=== PATIENT | male | born 1945 | race Caucasian/White ===

== ENCOUNTER 2022-06-23 11:14 | Emergency (ER) | payer MEDICARE, OTHER ==
[~2022-06-23] VITALS: Ht 172.7 cm; Wt 102.3 kg
[2022-06-23] MEDS ORDERED: RASA0.5T PO (11:44)
[2022-06-23] MEDS ORDERED: CARB-113 PO (11:44)
[2022-06-23] MEDS ORDERED: ELIQ5TAB PO (11:44)
[2022-06-23] MEDS ORDERED: MYRB50TA PO (11:44)
[2022-06-23] MEDS ORDERED: NOXI1TAB PO (11:44)
[2022-06-23] MEDS ORDERED: LIPI20TA PO (11:44)
[2022-06-23] MEDS ORDERED: PRAM1TAB75 PO (11:44)
[2022-06-23] MEDS ORDERED: OMEP10CASR PO (11:44)
[2022-06-23] MEDS ORDERED: ALBUTEROL SULFATE 2.5MG/0.5ML INH NEB SOLN NEB ONE (12:35)
[2022-06-23 12:46] LABS: BASO % 0.7 % (0.0-1.0); EOS # 0.1 10^3/uL (0.0-0.5); EOS % 2.3 % (0.0-3.0); HEMATOCRIT 50.7 % (42.0-52.0); HEMOGLOBIN 17.1 g/dl (13.5-17.5); LYMPH # 0.9 10^3/uL (1.5-5.0); LYMPH % 15.8 % (24.0-44.0); MEAN CORPUSCULAR HEMOGLOBIN 30.8 pg (27.0-33.0); MEAN CORPUSCULAR HGB CONC 33.7 g/dl (32.0-36.5); MEAN CORPUSCULAR VOLUME 91.2 fl (80.0-96.0); MONO # 0.5 10^3/uL (0.0-0.8); MONO % 9.5 % (2.0-8.0); NEUTROPHILS # 4.1 10^3/uL (1.5-8.5); PLATELET COUNT, AUTOMATED 179 10^3/uL (150-450); RED BLOOD COUNT 5.56 10^6/uL (4.30-6.10); WHITE BLOOD COUNT 5.7 10^3/uL (4.0-10.0)
[2022-06-23 13:12] LABS: INR 1.11; PROTHROMBIN TIME 14.5 SECONDS (12.5-14.5)
[2022-06-23 13:13] LABS: PARTIAL THROMBOPLASTIN TIME 33.6 SECONDS (24.8-34.2)
[2022-06-23 13:18] LABS: ALBUMIN 4.4 G/DL (3.2-5.2); ALKALINE PHOSPHATASE 44 U/L (46-116); ALT/SGPT < 9 U/L (7.0-40); AST/SGOT 61 U/L (<34); BILIRUBIN,DIRECT 0.2 MG/DL (<0.4); BILIRUBIN,TOTAL 0.8 MG/DL (0.3-1.2); BLOOD UREA NITROGEN 15 MG/DL (9-23); CALCIUM LEVEL 9.5 MG/DL (8.3-10.6); CARBON DIOXIDE LEVEL 28 MMOL/L (20-31); CHLORIDE LEVEL 102 MMOL/L (98-107); CREATININE FOR GFR 0.89 MG/DL (0.70-1.30); GLOMERULAR FILTRATION RATE > 60.0 (>42); GLUCOSE, FASTING 110 MG/DL (74-106); LIPASE 30 U/L (12-53); SODIUM LEVEL 137 MMOL/L (136-145); TOTAL PROTEIN 7.7 G/DL (5.7-8.2)
[2022-06-23] MEDS ORDERED: VENTAER INH (14:40)
[2022-06-23 14:50] VITALS: BP 132/72
== END 2022-06-23 15:02 | disposition home or self-care (01) ==
LOC: M ED 11:14
DX: J20.9 Acute bronchitis, unspecified (principal); R31.9 Hematuria, unspecified; I48.0 Paroxysmal atrial fibrillation; G20 Parkinson's disease; E11.9 Type 2 diabetes mellitus without complications; F43.10 Post-traumatic stress disorder, unspecified; Z86.79 Personal history of other diseases of the circulatory system; Z88.0 Allergy status to penicillin; Z88.1 Allergy status to other antibiotic agents; Z88.2 Allergy status to sulfonamides; Z79.52 Long term (current) use of systemic steroids; Z79.01 Long term (current) use of anticoagulants; Z79.02 Long term (current) use of antithrombotics/antiplatelets; Z79.899 Other long term (current) drug therapy

== ENCOUNTER → 2024-02-28 | Outpatient (CLI) | payer MEDICARE, OTHER ==
[~2024-02-28] MED LIST: CARB-113 PO; ELIQ5TAB PO; LIPI20TA PO; MYRB50TA PO; NOXI1TAB PO; OMEP10CASR PO; PRAM2.252 PO; RASA0.5T PO; VENTAER INH
== END ==
LOC: M RAD 06:23
PROVIDERS: ATTEND Internal Medicine
DX: K46.9 Unspecified abdominal hernia without obstruction or gangrene (principal)

== ENCOUNTER → 2024-02-28 | Outpatient (CLI) | payer MEDICARE, OTHER ==
[~2024-02-28] MED LIST changes: +ISOVUE-370 76% 100ML VIAL As Ordered ONE
== END ==
LOC: M RAD 06:26
PROVIDERS: ATTEND Internal Medicine
DX: M54.16 Radiculopathy, lumbar region (principal); M51.25 Other intervertebral disc displacement, thoracolumbar region; M25.78 Osteophyte, vertebrae; N28.1 Cyst of kidney, acquired
CPT/HCPCS: 72131; 74178; Q9967

== ENCOUNTER → 2024-02-28 | Outpatient (CLI) | payer MEDICARE, OTHER ==
[~2024-02-28] MED LIST changes: -ISOVUE-370 76% 100ML VIAL As Ordered ONE
== END ==
LOC: M RAD 06:24
PROVIDERS: ATTEND Nurse Practitioner Family
DX: N44.2 Benign cyst of testis (principal); K46.9 Unspecified abdominal hernia without obstruction or gangrene; N50.3 Cyst of epididymis; N44.1 Cyst of tunica albuginea testis; N50.89 Other specified disorders of the male genital organs

== ENCOUNTER → 2025-01-28 | Outpatient (CLI) | payer OTHER | LOC: M SOG 07:25 | PROVIDERS: ATTEND Orthopaedic Surgery | DX: Z53.9 Procedure and treatment not carried out, unspecified reason (principal) ==

== ENCOUNTER → 2025-01-28 | Outpatient (CLI) | payer OTHER ==
[2025-01-28 16:40] LABS: BASO # 0.0 10^3/uL (0.0-0.2); BASO % 0.4 % (0.0-1.0); EOS # 0.2 10^3/uL (0.0-0.5); EOS % 2.7 % (0.0-3.0); LYMPH # 1.6 10^3/uL (1.5-5.0); LYMPH % 19.7 % (24.0-44.0); MONO # 0.6 10^3/uL (0.0-0.8); MONO % 7.4 % (2.0-8.0); NEUTROPHILS # 5.5 10^3/uL (1.5-8.5); NEUTROPHILS % 69.4 % (36.0-66.0); PLATELET COUNT, AUTOMATED 204 10^3/uL (150-450)
[2025-01-28 16:49] LABS: ERYTHROCYTE SEDIMENTATION RATE 27 mm/hr (0-20)
[2025-01-28 16:52] LABS: INR 1.11
[2025-01-28 17:15] LABS: C REACTIVE PROTEIN QUANTITATIV < 0.50 MG/DL (<1.0)
[2025-01-28 17:16] LABS: ALT/SGPT < 9 U/L (7.0-40); AST/SGOT 16 U/L (<34); CALCIUM LEVEL 9.2 MG/DL (8.3-10.6); CARBON DIOXIDE LEVEL 30 MMOL/L (20-31); CHLORIDE LEVEL 104 MMOL/L (98-107); CREATININE FOR GFR 0.82 MG/DL (0.70-1.30); GLOMERULAR FILTRATION RATE 89.9 (>42); POTASSIUM SERUM 4.3 MMOL/L (3.5-5.1); SODIUM LEVEL 142 MMOL/L (136-145)
[2025-01-28 17:18] LABS: TOTAL 25(OH) VITAMIN D 32.4 NG/ML (20.0-100.0)
[2025-01-28 18:05] LABS: ESTIMATED AVERAGE GLUCOSE 128.0 MG/DL (60-110)
== END ==
LOC: M LAB 16:16
PROVIDERS: ATTEND Orthopaedic Surgery
DX: M16.11 Unilateral primary osteoarthritis, right hip (principal); Z79.01 Long term (current) use of anticoagulants; Z79.899 Other long term (current) drug therapy

== ENCOUNTER → 2025-02-11 | Outpatient (REF) | payer OTHER | LOC: M LAB REF 16:41 | PROVIDERS: ATTEND Orthopaedic Surgery | DX: Z01.818 Encounter for other preprocedural examination (principal); M16.11 Unilateral primary osteoarthritis, right hip ==

== ENCOUNTER → 2025-03-22 | Outpatient (CLI) | payer OTHER, MEDICARE ==
[~2025-03-22] MED LIST changes: +ACET-840 PO; +BISA5TAB15 PO; +FLUD0.1T PO; +GABA-284 PO; +OMEP-173 PO; +OXYC-517 PO; +PRAM0.252 PO; +ROSU40TA81 PO; +TOLT4CAP3 PO; +VITA100093 PO; +[UNRECOGNIZED DRUG - OTHER] TOP
== END ==
LOC: M RAD 13:49
PROVIDERS: ATTEND Orthopaedic Surgery
DX: M16.11 Unilateral primary osteoarthritis, right hip (principal)

== ENCOUNTER 2025-04-05 09:19 | Inpatient (IN) | payer OTHER, MEDICARE ==
[~2025-04-05] VITALS: Ht 172.7 cm; Wt 112.6 kg
[2025-04-05] VITALS (7 sets, daily range): BP systolic 101–119; BP diastolic 55–73; TEMP 97.1–97.9; O2SAT 83–99
[2025-04-05] MEDS ORDERED: LIDOCAINE 2% 100 MG/5 ML SDV (FOR ANES.) As Ordered ONE (09:43)
[2025-04-05] MEDS ORDERED: ROCURONIUM BROMIDE 50MG/5ML VIAL As Ordered ONE (09:43)
[2025-04-05] MEDS ORDERED: ONDANSETRON 4MG/2ML VIAL As Ordered ONE (09:43)
[2025-04-05] MEDS ORDERED: MIDAZOLAM INJ 2 MG/2 ML VIAL As Ordered ONE (09:43)
[2025-04-05] MEDS ORDERED: dexAMETHasone 4 MG/ML 1 ML VIAL As Ordered ONE (09:43)
[2025-04-05] MEDS ORDERED: dexmedeTOMIDine (4 MCG/ML) 200 MCG/50 ML BTL As Ordered ONE (09:44)
[2025-04-05] MEDS: ALBUTEROL SULFATE 2.5 MG/0.5 ML INH CONCENTRATE NEB SOLN NEB ONE (10:43)
[2025-04-05] MEDS: LR 1,000 ML IV SCH ×3 (11:20→16:45)
[2025-04-05] MEDS: VANCOMYCIN 1000MG/20ML VIAL As Ordered ONE (11:40)
[2025-04-05] MEDS: VANCOMYCIN HCL 1,000 MG, VIAL MATE ADAPTER 1 EACH in NS 250 ML IV ONE (12:00)
[2025-04-05] MEDS ORDERED: LACRILUBE (AKWA TEARS) OPHTH OINT 3.5 GM As Ordered ONE (12:38)
[2025-04-05] MEDS: TRANEXAMIC ACID 100 MG/ML 10ML VIAL As Ordered ONE (12:40)
[2025-04-05] MEDS ORDERED: ACETAMINOPHEN 1000MG/100ML IV BAG As Ordered ONE (13:43)
[2025-04-05] MEDS ORDERED: SUGAMMADEX SODIUM 500 MG/5 ML VIAL As Ordered ONE (13:43)
[2025-04-05] MEDS ORDERED: HYDROmorphone HCL 2 MG/ML 1 ML VIAL As Ordered ONE (14:48)
[2025-04-05] MEDS ORDERED: SEVOFLURANE INHAL SOLN 250 ML BTL As Ordered ONE (15:39)
[2025-04-05] MEDS ORDERED: PHENYLephrine 500MCG 5ML (100MCG/ML) SYRINGE As Ordered ONE (16:06)
[2025-04-05] MEDS ORDERED: VASOPRESSIN INJ 20UNITS/ML 1ML VIAL As Ordered ONE (16:30)
[2025-04-05] MEDS: TRANEXAMIC ACID 100 MG/ML 10ML VIAL IV ONE (16:34)
[2025-04-05] MEDS: REK 50ML SYRINGE IA ONE (16:34)
[2025-04-05] MEDS ORDERED: ONDANSETRON 4MG/2ML VIAL IV PRN ×2 (16:35→16:45)
[2025-04-05] MEDS ORDERED: HYDROMORPHONE HCL 0.5 MG/0.5 ML SYRINGE IV PRN (16:35)
[2025-04-05] MEDS ORDERED: SENNA 8.6 MG TAB PO PRN (16:45)
[2025-04-05 17:37] LABS: PLATELET COUNT, AUTOMATED 158 10^3/uL (150-450)
[2025-04-05] MEDS ORDERED: MIRALAX *UNIT DOSE* 17 GM PACKET PO PRN (19:20)
[2025-04-05] MEDS ORDERED: ASPIRIN 81 MG ENTERIC TABLET PO SCH (21:00)
[2025-04-05] MEDS: DOCUSATE SODIUM 100 MG CAPSULE PO SCH (21:42)
[2025-04-05] MEDS: SENNOSIDES/DOCUSATE SODIUM 8.6 MG/50MG TAB PO SCH (21:42)
[2025-04-05] MEDS: CLINDAMYCIN 150 MG CAPSULE PO SCH (21:42)
[2025-04-05] MEDS ORDERED: HOME MED LIST COMPLETE! XX SCH (22:25)
[2025-04-06] VITALS (7 sets, daily range): BP systolic 110–139; BP diastolic 62–82; TEMP 97.7–98.3; O2SAT 94–99
[2025-04-06] MEDS: OMEPRAZOLE 20MG CAP PO SCH (00:10)
[2025-04-06] MEDS: ACETAMINOPHEN 325 MG TAB PO SCH (00:10)
[2025-04-06] MEDS: PRAMIPEXOLE 0.25 MG TAB PO SCH (00:11)
[2025-04-06] MEDS ORDERED: PILL CUTTER 1 EACH XX ONE (06:38)
[2025-04-06] MEDS: CARBIDOPA/LEVODOPA 25 MG/100 MG PO SCH (06:43)
[2025-04-06] MEDS: NS 500 ML IV ONE (08:30)
[2025-04-06 08:33] LABS: PLATELET COUNT, AUTOMATED 159 10^3/uL (150-450)
[2025-04-06] MEDS: BISACODYL 10 MG SUPP PR SCH (08:55)
[2025-04-06 09:03] LABS: CK-MB VALUE MASS 13.9 NG/ML (<3.6)
[2025-04-06 09:04] LABS: C REACTIVE PROTEIN QUANTITATIV 2.18 MG/DL (<1.0)
[2025-04-06 09:06] LABS: ALT/SGPT 13.0 U/L (7.0-40); AST/SGOT 63.0 U/L (<34); CALCIUM LEVEL 9.2 MG/DL (8.3-10.6); CARBON DIOXIDE LEVEL 23.0 MMOL/L (20-31); CHLORIDE LEVEL 103.0 MMOL/L (98-107); CREATININE FOR GFR 1.43 MG/DL (0.70-1.30); GLOMERULAR FILTRATION RATE 50.2 (>42); POTASSIUM SERUM 4.6 MMOL/L (3.5-5.1); SODIUM LEVEL 139.0 MMOL/L (136-145)
[2025-04-06] MEDS: GABAPENTIN 400 MG CAP PO SCH (09:20)
[2025-04-06 09:22] LABS: CPK CREATINE PHOSPHOKINASE 1907.0 U/L (46-171); MB/CK RELATIVE INDEX 0.72 (< OR =4)
[2025-04-06] MEDS: ASCORBIC ACID 500 MG TAB PO SCH (09:22)
[2025-04-06] MEDS: FLUDROCORTISONE ACETATE 0.1 MG TAB PO SCH (09:22)
[2025-04-06] MEDS: FERROUS SULFATE 325 MG TAB PO SCH (09:23)
[2025-04-06 09:27] LABS: LYMPHOCYTES 12 % (16-44); MONOCYTES 6 % (0-5); NEUTROPHILS 82 % (28-66)
[2025-04-06 09:28] LABS: PLATELET ESTIMATE NORMAL (NORMAL)
[2025-04-06 13:47] LABS: KETONE, URINE AUTO RFX TRACE mg/dL (NEGATIVE); LEUKOCYTE ESTERASE UR AUTO RFX NEGATIVE (NEGATIVE); MUCUS, URINE RFX SMALL (NEGATIVE); NITRITE, URINE AUTO RFX NEGATIVE (NEGATIVE); RBC, URINE AUTO RFX 11 /HPF (0-3); SQUAM EPITHELIAL CELL UR AURFX 4 /HPF (0-6); WBC, URINE AUTO RFX 7 /HPF (0-3)
[2025-04-06 16:58] LABS: CALCIUM LEVEL 8.6 MG/DL (8.3-10.6); CARBON DIOXIDE LEVEL 23.0 MMOL/L (20-31); CHLORIDE LEVEL 103.0 MMOL/L (98-107); CREATININE FOR GFR 1.21 MG/DL (0.70-1.30); GLOMERULAR FILTRATION RATE 61.3 (>42); POTASSIUM SERUM 4.6 MMOL/L (3.5-5.1); SODIUM LEVEL 137.0 MMOL/L (136-145)
[2025-04-06] MEDS: FINASTERIDE 5 MG TAB PO SCH (20:30)
[2025-04-06] MEDS: APIXABAN 5 MG TAB PO SCH (20:30)
[2025-04-06] MEDS ORDERED: APIXABAN 5 MG TAB PO ONE (21:00)
[2025-04-06] MEDS: VANCOMYCIN HCL 1,000 MG, VIAL MATE ADAPTER 1 EACH in NS 250 ML IV SCH (23:48)
[2025-04-07 02:11] LABS: PLATELET COUNT, AUTOMATED 127 10^3/uL (150-450)
[2025-04-07 02:54] LABS: ALT/SGPT 9.0 U/L (7.0-40); AST/SGOT 62.0 U/L (<34); CALCIUM LEVEL 8.6 MG/DL (8.3-10.6); CARBON DIOXIDE LEVEL 24.0 MMOL/L (20-31); CHLORIDE LEVEL 105.0 MMOL/L (98-107); CREATININE FOR GFR 0.87 MG/DL (0.70-1.30); GLOMERULAR FILTRATION RATE 88.3 (>42); POTASSIUM SERUM 4.6 MMOL/L (3.5-5.1); SODIUM LEVEL 137.0 MMOL/L (136-145)
[2025-04-07 03:58] VITALS: BP 107/58; TEMP 97.8; O2SAT 100
[2025-04-07 07:47] VITALS: BP 131/69; TEMP 97.3; O2SAT 95
[2025-04-07] MEDS: ALBUTEROL SULFATE 2.5 MG/0.5 ML INH CONCENTRATE NEB SOLN NEB PRN (11:15)
[2025-04-07 14:01] LABS: PLATELET COUNT, AUTOMATED 123 10^3/uL (150-450)
[2025-04-07] MEDS: VITAMIN D 1,000 INTERNATIONAL UNITS TABLET PO SCH (15:36)
[2025-04-07] MEDS: TOLTERODINE TARTRATE 2 MG LA CAP PO SCH (15:36)
[2025-04-07 16:37] VITALS: BP_SYST 149; BP_SYST 159; BP_DIAS 68; TEMP 99.3; O2SAT 97
[2025-04-07 19:42] VITALS: BP 124/61; TEMP 98.5; O2SAT 98
[2025-04-07] MEDS: ROSUVASTATIN 10 MG TAB PO SCH (20:44)
[2025-04-07] MEDS: APIXABAN 5 MG TAB PO SCH (20:45)
[2025-04-07] MEDS ORDERED: GABAPENTIN 100 MG CAP PO SCH (21:00)
[2025-04-08 00:14] VITALS: BP 111/66; TEMP 98.1; O2SAT 96
[2025-04-08 03:27] VITALS: BP 143/66; TEMP 98.1; O2SAT 98
[2025-04-08 07:47] LABS: PLATELET COUNT, AUTOMATED 124 10^3/uL (150-450)
[2025-04-08 08:00] VITALS: BP 166/72; TEMP 97.8; O2SAT 100
[2025-04-08 08:14] LABS: ALT/SGPT 14 U/L (7.0-40); AST/SGOT 48 U/L (<34); CALCIUM LEVEL 8.5 MG/DL (8.3-10.6); CARBON DIOXIDE LEVEL 26 MMOL/L (20-31); CHLORIDE LEVEL 103 MMOL/L (98-107); CREATININE FOR GFR 0.65 MG/DL (0.70-1.30); GLOMERULAR FILTRATION RATE > 90.0 (>42); POTASSIUM SERUM 4.1 MMOL/L (3.5-5.1); SODIUM LEVEL 138 MMOL/L (136-145)
[2025-04-08] MEDS ORDERED: GABAPENTIN 400 MG CAP PO SCH (09:00)
[2025-04-08 09:08] VITALS: BP 140/76; TEMP 98.7; O2SAT 99
[2025-04-08 09:26] VITALS: BP 140/76
[2025-04-08] MEDS: NITROGLYCERIN 0.4 MG SUBL TABLET SL STA (09:26)
[2025-04-08 09:53] LABS: CK-MB VALUE MASS 5.4 NG/ML (<3.6)
[2025-04-08 09:55] LABS: CPK CREATINE PHOSPHOKINASE 1007.0 U/L (46-171); MB/CK RELATIVE INDEX 0.53 (< OR =4)
[2025-04-08 11:00] VITALS: BP 104/55; TEMP 97.7; O2SAT 96
[2025-04-08] MEDS ORDERED: TUMS500C PO (11:08)
[2025-04-08] MEDS ORDERED: NITR0.4S14 SL (11:08)
[2025-04-08] MEDS ORDERED: MAALSUS19 PO (11:08)
[2025-04-08] MEDS ORDERED: CARA1TAB6 PO (11:08)
[2025-04-08] MEDS ORDERED: OXYC-517 PO (11:08)
[2025-04-08] MEDS: SUCRALFATE SUSP 1GM/10ML UD PO ONE (11:19)
[2025-04-08] MEDS ORDERED: APIXABAN 5 MG TAB PO SCH (21:00)
== END 2025-04-08 13:26 | DRG 470 ==
LOC: M SDC 09:19 → M ED INP 17:21 → M MS5PR 18:45 → M MS4PR 04-06 08:43 → M MSPAV 04-06 15:40
PROVIDERS: ADMIT Internal Medicine Nephrology; ATTEND General Practice
PROC: 30233N1 Transfusion of Nonautologous Red Blood Cells into Peripheral Vein, Percutaneous Approach (ICD-10-PCS; 2025-04-05)
PROC: 0SR90JA Replacement of Right Hip Joint with Synthetic Substitute, Uncemented, Open Approach (ICD-10-PCS; principal; 2025-04-05 11:00)
DX: M16.11 Unilateral primary osteoarthritis, right hip (principal); D62 Acute posthemorrhagic anemia; E87.20 Acidosis, unspecified; I12.9 Hypertensive chronic kidney disease with stage 1 through stage 4 chronic kidney disease, or unspecified chronic kidney disease; G20.A1 Parkinson's disease without dyskinesia, without mention of fluctuations; E11.40 Type 2 diabetes mellitus with diabetic neuropathy, unspecified; E11.22 Type 2 diabetes mellitus with diabetic chronic kidney disease; G25.81 Restless legs syndrome; N18.9 Chronic kidney disease, unspecified; E66.9 Obesity, unspecified; E78.5 Hyperlipidemia, unspecified; I49.5 Sick sinus syndrome; I48.91 Unspecified atrial fibrillation; K21.9 Gastro-esophageal reflux disease without esophagitis; G47.33 Obstructive sleep apnea (adult) (pediatric); K59.00 Constipation, unspecified; Z95.0 Presence of cardiac pacemaker; I95.1 Orthostatic hypotension; Z77.098 Contact with and (suspected) exposure to other hazardous, chiefly nonmedicinal, chemicals; Z79.899 Other long term (current) drug therapy; Z88.0 Allergy status to penicillin; Z88.2 Allergy status to sulfonamides; Z88.8 Allergy status to other drugs, medicaments and biological substances

== ENCOUNTER → 2025-04-14 | Outpatient (REF) | payer MEDICARE, OTHER ==
[~2025-04-14] MED LIST changes: +CARA1TAB6 PO; +MAALSUS19 PO; +NITR0.4S14 SL; +TUMS500C PO
[2025-04-14 10:39] LABS: PLATELET COUNT, AUTOMATED 282 10^3/uL (150-450)
== END ==
LOC: SKLAB2 09:32
PROVIDERS: ATTEND Family Medicine
DX: Z47.1 Aftercare following joint replacement surgery (principal); Z96.641 Presence of right artificial hip joint; Z79.899 Other long term (current) drug therapy

== ENCOUNTER → 2025-04-15 | Outpatient (CLI) | payer OTHER, MEDICARE | LOC: M SOG 07:56 | PROVIDERS: ATTEND Orthopaedic Surgery | DX: Z47.1 Aftercare following joint replacement surgery (principal); Z96.641 Presence of right artificial hip joint ==